=== PATIENT | male | born 1995 | race Caucasian/White ===

== ENCOUNTER 2019-05-31 15:36 | Emergency (ER) | payer MEDICAID ==
[~2019-05-31] VITALS: Ht 172.7 cm; Wt 73.9 kg
[2019-05-31 15:42] VITALS: BP 117/82
--- NOTE | 2019-05-31 15:55 | NUR ---
Patient ambulated to bed 11. RN evaluating patient at bedside.
--- NOTE | 2019-05-31 16:01 | NUR ---
Dr. Romano evaluating patient at bedside.
--- NOTE | 2019-05-31 16:07 | NUR ---
PT BIB SELF C/O LT SIDED CP X 2 WEEKS. PT REPORTS PAIN IN MORNINGS AFTER WAKING UP AND W/ DEEP BREATHES. PT REPORTS PAIN AT 1/10 AT THIS TIME. DENIES SOB, N/V, DIZZINESS, OR FATIGUE. HEART RRR, CAP REFIL <2 SEC, NO EDEMA PRESENT, SKIN COLOR WNL. VSS. ER MD TO SEE PT. MEDHX:DENIES RX:DENIES
--- NOTE | 2019-05-31 16:36 | NUR ---
X-RAY AT BEDSIDE AT THIS TIME
[2019-05-31 17:16] VITALS: BP 36/81
== END 2019-05-31 17:16 | disposition home or self-care (01) ==
LOC: MED 15:36
DX: R07.89 Other chest pain (principal)
CPT/HCPCS: 71045; 99283

== ENCOUNTER 2022-12-14 08:24 | Inpatient (IN) | payer MEDICAID ==
[~2022-12-14] VITALS: Ht 172.7 cm; Wt 77.6 kg
[2022-12-14 08:32] VITALS: BP 129/52
[2022-12-14] MEDS ORDERED: NACL 0.9% 1,000 ML IV SCH (09:15)
[2022-12-14 09:43] LABS: BASOPHILS # (AUTO) 0.1 K/uL (0.00-0.22); BASOPHILS % (AUTO) 0.6 % (0.0-2.0); EOSINOPHILS % (AUTO) 0.2 % (0.0-4.0); HEMATOCRIT 42.4 % (36-52); HEMOGLOBIN 14.3 g/dL (12.0-18.0); LYMPHOCYTES # (AUTO) 1.2 K/uL (2.0-11.5); LYMPHOCYTES % (AUTO) 6.8 % (20.5-51.1); MEAN CORPUSCULAR HEMOGLOBIN 28 pg (27-31); MEAN CORPUSCULAR HGB CONC 34 g/dL (33-37); MEAN CORPUSCULAR VOLUME 82.5 fL (80-94); MONOCYTES # (AUTO) 1.7 K/uL (0.8-1.0); MONOCYTES % (AUTO) 9.5 % (1.7-9.3); NEUTROPHILS # (AUTO) 14.7 K/uL (1.8-7.7); NEUTROPHILS % (AUTO) 82.9 % (42.2-75.2); PLATELET COUNT (AUTO) 300 K/uL (140-450); RED BLOOD CELL COUNT(AUTO) 5.14 MIL/uL (4.20-6.10); RED CELL DISTRIBUTION WIDTH 12.6 % (11.6-13.7); WHITE BLOOD COUNT (AUTO) 17.7 K/uL (4.8-10.8)
--- NOTE | 2022-12-14 11:06 | NUR ---
PATIENT PRESENTS TO ED WITH COMPLAINTS OF INTERMITTENT ABDOMINAL PAIN. PATIENT DENIES N/V/D. NO PMH, ALERT AND ORIENTED X 4. SKIN IS PINK/WARM/DRY; WITH EVEN AND STEADY GAIT; LUNGS CLEAR BL; HR EVEN AND REGULAR; PT DENIES ANY FEVER, CP, SOB, OR COUGH AT THIS TIME; PATIENT STATES PAIN OF 4/10 AT THIS TIME; VSS; PATIENT POSITIONED FOR COMFORT; HOB ELEVATED; BEDRAILS UP X2; BED DOWN. ER MD MADE AWARE OF PT STATUS.
[2022-12-14 11:24] LABS: ALBUMIN 3.7 g/dL (3.4-5.0); ANION GAP 12.7 (8-16); CARBON DIOXIDE 28.6 mmol/L (21-32); POTASSIUM 3.3 mmol/L (3.5-5.1); TOTAL BILIRUBIN 0.6 mg/dL (0.0-1.0)
[2022-12-14] MEDS ORDERED: metroNIDAZOLE 500 MG/NS PREMIX 100 ML IV ONE (13:05)
--- NOTE | 2022-12-14 14:00 | NUR ---
PATIENT ASLEEP IN BED, NO S/S OF ACUTE DISTRESS. PLAN OF CARE ONGOING
[2022-12-14 16:26] LABS: APPEARANCE,URINE CLEAR (CLEAR); BILIRUBIN,URINE NEGATIVE (NEGATIVE); BLOOD, URINE TRACE-I (NEGATIVE); COLOR,URINE YELLOW (YELLOW); LEUKOCYTE ESTERASE ,URINE NEGATIVE (NEGATIVE); NITRITE, URINE NEGATIVE (NEGATIVE); UGLUCOSE NEGATIVE (NEGATIVE)
[2022-12-14 16:27] LABS: RBC,URINE 0-5 /HPF (0-5); WBC,URINE NONE SEEN /HPF (0-5)
[2022-12-14] MEDS ORDERED: POTASSIUM CHLORIDE 10 MEQ TABER PO PRN (17:20)
[2022-12-14] MEDS ORDERED: ONDANSETRON 4 MG/2 ML VIAL IM/IVP PRN (17:20)
[2022-12-14] MEDS ORDERED: ZOLPIDEM 5 MG TAB PO PRN (17:20)
[2022-12-14] MEDS ORDERED: MORPHINE SULFATE 2 MG/ML SYR IVP PRN (17:20)
[2022-12-14] MEDS: NACL 0.9% 1,000 ML IV SCH (17:20)
[2022-12-14] MEDS ORDERED: guaiFENesin DM 200/20 MG-10 ML 10 ML UDC PO PRN (17:20)
[2022-12-14] MEDS ORDERED: HYDROcodone/APAP 7.5/325 MG 1 TAB PO PRN (17:20)
[2022-12-14] MEDS ORDERED: ACETAMINOPHEN 325 MG TAB PO PRN (17:20)
[2022-12-14] MEDS ORDERED: DOCUSATE SODIUM 100 MG GELCAP PO PRN (17:20)
[2022-12-14 17:53] LABS: MAGNESIUM 2.5 mg/dL (1.8-2.4); PHOSPHORUS 3.5 mg/dL (2.5-4.9)
--- NOTE | 2022-12-14 18:17 | NUR ---
PATIENT SEEN BY DR. MCKENZIE. FOR BOWEL PERFORATION
[2022-12-14 18:27] LABS: PROTHROMBIN TIME 10.9 secs (10.8-13.4)
--- NOTE | 2022-12-14 19:33 | NUR ---
REPORT GIVEN TO CORI MOHAN FOR CONTINUITY OF CARE
--- NOTE | 2022-12-14 19:42 | NUR ---
Swabs and urine collected and sent to lab
[2022-12-14] MEDS ORDERED: POTASSIUM CHLORIDE 40 MEQ, LIDOCAINE MPF 1% 25 MG in NACL 0.9% 250 ML IV PRN (20:10)
--- NOTE | 2022-12-14 21:30 | NUR ---
Report given to Adi PERSAUD for transfer of care
--- NOTE | 2022-12-14 22:30 | NUR ---
RECEIVED PT FROM ER NURSE VIA WHHELCHAIR, PATIENT IS ALERT ORIENTED X 4, NO COMPLAIN OF PAIN AT THIS TIME, PIV ON RAC INTACT AND PATENT.
[2022-12-14] MEDS ORDERED: PIPERACILLIN/TAZOBACTAM 2.25 GM VIAL IV ONE (23:59)
[2022-12-15] MEDS: PIPERACILLIN/TAZOBACTAM 4.5 GM in DEXTROSE 5% 100 ML IV SCH ×4 (00:18→18:23)
--- NOTE | 2022-12-15 03:46 | NUR ---
PATIENT ASLEEP, NO DISTRESS NOTED
[2022-12-15] MEDS ORDERED: PIPERACILLIN/TAZOBACTAM 2.25 GM VIAL IV ONE (05:06)
[2022-12-15 05:16] LABS: BASOPHILS # (AUTO) 0.1 K/uL (0.00-0.22); BASOPHILS % (AUTO) 0.7 % (0.0-2.0); EOSINOPHILS # (AUTO) 0.2 K/uL (0-0.4); EOSINOPHILS % (AUTO) 1.7 % (0.0-4.0); HEMATOCRIT 39.4 % (36-52); HEMOGLOBIN 13.4 g/dL (12.0-18.0); LYMPHOCYTES # (AUTO) 1.7 K/uL (2.0-11.5); MEAN CORPUSCULAR HEMOGLOBIN 28 pg (27-31); MEAN CORPUSCULAR HGB CONC 34 g/dL (33-37); MEAN CORPUSCULAR VOLUME 82.5 fL (80-94); MONOCYTES # (AUTO) 2.1 K/uL (0.8-1.0); MONOCYTES % (AUTO) 16.6 % (1.7-9.3); NEUTROPHILS # (AUTO) 8.3 K/uL (1.8-7.7); PLATELET COUNT (AUTO) 348 K/uL (140-450); RED BLOOD CELL COUNT(AUTO) 4.78 MIL/uL (4.20-6.10); RED CELL DISTRIBUTION WIDTH 12.6 % (11.6-13.7); WHITE BLOOD COUNT (AUTO) 12.4 K/uL (4.8-10.8)
[2022-12-15 05:49] LABS: ANION GAP 15.7 (8-16); CARBON DIOXIDE 26.1 mmol/L (21-32); CREATININE 0.9 mg/dL (0.6-1.3); POTASSIUM 3.8 mmol/L (3.5-5.1)
--- NOTE | 2022-12-15 07:40 | NUR ---
GOT REPORT FROM THE NIGHT NURSE, PT AWAKE .[id number]
[2022-12-15 07:51] VITALS: BP 123/76
[2022-12-15] MEDS: PANTOPRAZOLE 40 MG TABEC PO SCH (09:08)
[2022-12-15] MEDS: NACL 0.9% 1,000 ML IV SCH (10:00)
--- NOTE | 2022-12-15 10:07 | NUR ---
PATIENT HAS BEEN SCREENED AND CATEGORIZED MODERATE NUTRITION RISK. PATIENT WILL BE SEEN WITHIN 3-5 DAYS OF ADMISSION. / REVIEWED BY MINDY GONZALEZ RD
[2022-12-15 12:00] VITALS: BP 123/76
[2022-12-15 15:48] VITALS: BP 90/60
--- NOTE | 2022-12-15 19:30 | NUR ---
RECD. REPORT FROM CORI MEJIA. PATIENT RESTING IN BED, AWAKE, A/OX4. RESPIRATION EVEN AND UNLABORED. IV OF NS INFUSING AT 60 ML/HR, RIGHT AC G20.AMBULATORY TO THE BATHROOM. NPO. DENIES PAIN 0/10.
--- NOTE | 2022-12-15 19:31 | NUR ---
Patient's Plan of Care was discussed and reviewed with ROGELIO: BRISSA
[2022-12-15 20:00] VITALS: BP 103/68
--- NOTE | 2022-12-15 21:00 | NUR ---
RESTING IN BED, WATCHING TV. NO COMPLAINT OF ABDOMINAL PAIN, 0/10.
[2022-12-15] MEDS: DEXT 5% /NACL 0.9% 1,000 ML IV SCH (21:45)
--- NOTE | 2022-12-15 23:00 | NUR ---
DR. MCKENZIE CAME AND CHECKED PATIENT. CHANGED DIET TO CLEAR LIQUID AND IF TOLERATED ADVANCE TO FULL LIQUID IN THE MORNING.
[2022-12-16] MEDS: PIPERACILLIN/TAZOBACTAM 4.5 GM in DEXTROSE 5% 100 ML IV SCH ×5 (00:03→23:05)
[2022-12-16 02:42] LABS: BARBITURATE, URINE NEGATIVE ng/ml (NEG <=200); BENZODIAZEPINE, URINE NEGATIVE ng/mL (NEG <=200); CANNABINOID, URINE NEGATIVE ng/mL (NEG <=50); COCAINE, URINE NEGATIVE ng/mL (NEG <=300); OPIATE, URINE NEGATIVE ng/mL (NEG <=2000); PHENCYCLIDINE SCREEN,URINE NEGATIVE ng/mL (NEG <=25)
[2022-12-16 04:00] VITALS: BP 97/68
--- NOTE | 2022-12-16 04:00 | NUR ---
SLEEPING COMFORTABLY IN BED. RESPIRATION EVEN AND UNLABORED.
[2022-12-16 05:45] LABS: BASOPHILS # (AUTO) 0.1 K/uL (0.00-0.22); BASOPHILS % (AUTO) 0.7 % (0.0-2.0); EOSINOPHILS # (AUTO) 0.3 K/uL (0-0.4); EOSINOPHILS % (AUTO) 4.1 % (0.0-4.0); HEMATOCRIT 40.3 % (36-52); HEMOGLOBIN 13.7 g/dL (12.0-18.0); LYMPHOCYTES % (AUTO) 25.1 % (20.5-51.1); MEAN CORPUSCULAR HEMOGLOBIN 28 pg (27-31); MEAN CORPUSCULAR HGB CONC 34 g/dL (33-37); MEAN CORPUSCULAR VOLUME 82.4 fL (80-94); MONOCYTES # (AUTO) 1.2 K/uL (0.8-1.0); NEUTROPHILS # (AUTO) 4.4 K/uL (1.8-7.7); NEUTROPHILS % (AUTO) 55.1 % (42.2-75.2); PLATELET COUNT (AUTO) 367 K/uL (140-450); RED BLOOD CELL COUNT(AUTO) 4.89 MIL/uL (4.20-6.10); RED CELL DISTRIBUTION WIDTH 12.5 % (11.6-13.7)
[2022-12-16 06:19] LABS: ANION GAP 11.9 (8-16); CARBON DIOXIDE 28.9 mmol/L (21-32); CREATININE 0.9 mg/dL (0.6-1.3); POTASSIUM 3.8 mmol/L (3.5-5.1)
--- NOTE | 2022-12-16 07:25 | NUR ---
CONDITION REMAIN STABLE. ENDORSED TO AM SHIFT NURSE FOR CONTINUITY OF CARE.
--- NOTE | 2022-12-16 07:30 | NUR ---
RECEIVED REPORT FROM NIGHTSHIFT NURSE. PT A/O X4. RR EVEN & UNLABORED. DENIES PAIN AT THIS TIME. DENIES NAUSEA. STATES BM. NEEDS ALL MET AT THIS TIME. ALL SAFETY MEASURES IN PLACE.
[2022-12-16 08:00] VITALS: BP 105/70
[2022-12-16] MEDS: PANTOPRAZOLE 40 MG TABEC PO SCH (08:37)
--- NOTE | 2022-12-16 13:00 | NUR ---
PT TOLERATED FULL LIQUID DIET. IN NO ACUTE DISTRESS. RR EVEN & UNLABORED. ALL NEEDS MET AT THIS TIME. ALL SAFETY MEASURES IN PLACE.
[2022-12-16] MEDS: DEXT 5% /NACL 0.9% 1,000 ML IV SCH ×2 (13:12→21:38)
--- NOTE | 2022-12-16 15:37 | NUR ---
DC PLANNING ASSESSMENT COMPLETE PLEASE REFER TO ASSESSMENT FOR DETAILS PT REPORTS DC PLAN IS TO RETURN HOME WITH FAMILY PROVIDING TRANSPORATION, ONCE MEDICALLY STABLE. Addendum: 12/16/22 at 1537 by Sudhakar BARDALES Amended: Links added.
[2022-12-16 16:00] VITALS: BP 108/74
--- NOTE | 2022-12-16 19:32 | NUR ---
REPORT GIVEN TO NIGHTSHIFT NURSECOLT FOR CONTINUITY OF CARE.
--- NOTE | 2022-12-16 20:00 | NUR ---
ASSESSMENT COMPLETED PLAN OF CARE REVIEWED DENIES PAIN CALL LIGHT IN REACH WILL CONTINUE TO MONITOR AND ASSESS
[2022-12-17] VITALS: BP 104/64
[2022-12-17 05:41] LABS: BASOPHILS # (AUTO) 0.1 K/uL (0.00-0.22); BASOPHILS % (AUTO) 0.8 % (0.0-2.0); EOSINOPHILS # (AUTO) 0.3 K/uL (0-0.4); EOSINOPHILS % (AUTO) 3.7 % (0.0-4.0); HEMATOCRIT 40.3 % (36-52); HEMOGLOBIN 13.8 g/dL (12.0-18.0); LYMPHOCYTES % (AUTO) 27.9 % (20.5-51.1); MEAN CORPUSCULAR HEMOGLOBIN 28 pg (27-31); MEAN CORPUSCULAR HGB CONC 34 g/dL (33-37); MEAN CORPUSCULAR VOLUME 82.1 fL (80-94); MONOCYTES # (AUTO) 0.8 K/uL (0.8-1.0); MONOCYTES % (AUTO) 10.7 % (1.7-9.3); NEUTROPHILS % (AUTO) 56.9 % (42.2-75.2); PLATELET COUNT (AUTO) 389 K/uL (140-450); RED BLOOD CELL COUNT(AUTO) 4.91 MIL/uL (4.20-6.10); RED CELL DISTRIBUTION WIDTH 12.8 % (11.6-13.7); WHITE BLOOD COUNT (AUTO) 7.1 K/uL (4.8-10.8)
[2022-12-17] MEDS: PIPERACILLIN/TAZOBACTAM 4.5 GM in DEXTROSE 5% 100 ML IV SCH ×2 (06:18→11:25)
[2022-12-17 06:20] LABS: ANION GAP 9.7 (8-16); CARBON DIOXIDE 28.9 mmol/L (21-32); CREATININE 0.9 mg/dL (0.6-1.3); POTASSIUM 3.6 mmol/L (3.5-5.1)
--- NOTE | 2022-12-17 06:20 | NUR ---
NO DISTRESS NOTED ALL NEEDS ANTICIPATED AND MET
--- NOTE | 2022-12-17 07:30 | NUR ---
RECEIVED REPORT FROM BACK TENDER NURSE FOR CONTINUITY OF CARE, POC DISCUSSED. PT IS RESTING IN BED ON ROOM AIR WITH CHEST RISING AND FALLING EVEN AND UNLABORED. NO ACUTE S/S OF DISTRESS. ALL NEEDS REPORTED TO BE MET BY PT, ALL SAFETY MEASURES IN PLACE, CALL LIGHT WITHIN REACH.
[2022-12-17] MEDS: PANTOPRAZOLE 40 MG TABEC PO SCH (09:00)
[2022-12-17] MEDS ORDERED: AMOX-999 PO (11:40)
--- NOTE | 2022-12-17 13:40 | NUR ---
PT WAS DISCHARGED IN STABLE CONDITION, VSS. IV REMOVED AND CATH IN PLACE. ALL DISCHARGE INSTRUCTIONS PROVIDED, ALL QUESTIONS ANSWERED. PT STABLE AND WALKED OUT TO BROTHER IN FRONT LOBBY. ALL BELONGINGS IN POSSESSION
== END 2022-12-17 13:40 | disposition home or self-care (01) | DRG 720 ==
LOC: MED 08:24 → MMU 17:21
PROVIDERS: ADMIT Student in an Organized Health Care Education/Training Program; ATTEND Student in an Organized Health Care Education/Training Program
DX: A41.9 Sepsis, unspecified organism (principal); K63.1 Perforation of intestine (nontraumatic); E87.1 Hypo-osmolality and hyponatremia; K56.7 Ileus, unspecified; K52.9 Noninfective gastroenteritis and colitis, unspecified; E87.6 Hypokalemia; E83.42 Hypomagnesemia; Z20.822 Contact with and (suspected) exposure to COVID-19
CPT/HCPCS: 36415; 80048; 80053; 80305; 81001; 82150; 83605; 83690; 83735; 84100; 85025; 85610; 85730; 87040; 87081; 96361; 96365; 99285; J2543; J3490; J7060